=== PATIENT | male | born 1965 | race African-American/Black ===

== ENCOUNTER 2017-02-17 17:01 | Emergency (ER) | payer OTHER ==
[~2017-02-17] VITALS: Ht 177.8 cm; Wt 84.0 kg
[~2017-02-17 17:01] MED LIST: ANTI-ITCH28.4 GM TP; AUGMENTIN875 MG PO; BENADRYL50 MG PO; FLEXERIL10 MG PO; FLONASE16 G1 BOTH NARES; MEDROL DOSEPAK4 MG PO; NAPROSYN500 MG PO; PERCOCET 5/31 TABLET PO; ZOFRAN4 MG PO
[2017-02-17] MEDS ORDERED: KEFLEX500 MG PO (18:18)
[2017-02-17 18:50] VITALS: BP 131/70
== END 2017-02-17 18:51 | disposition home or self-care (01) ==
LOC: EME 17:01
DX: S50.11XA Contusion of right forearm, initial encounter (principal); W17.89XA Other fall from one level to another, initial encounter; E11.9 Type 2 diabetes mellitus without complications; F17.200 Nicotine dependence, unspecified, uncomplicated
CPT/HCPCS: 73080; 73090; 99281; 99283

== ENCOUNTER 2017-04-15 19:22 | Emergency (ER) | payer OTHER ==
[~2017-04-15] VITALS: Ht 177.8 cm; Wt 82.2 kg
[~2017-04-15 19:22] MED LIST changes: +KEFLEX500 MG PO
[2017-04-15 19:53] VITALS: BP 135/82
[2017-04-15] MEDS ORDERED: MOTRIN800 MG PO (21:40)
[2017-04-15] MEDS ORDERED: FLEXERIL10 MG PO (21:40)
== END 2017-04-15 22:03 | disposition home or self-care (01) ==
LOC: EME 19:22
DX: S40.012A Contusion of left shoulder, initial encounter (principal); X58.XXXA Exposure to other specified factors, initial encounter; Y92.89 Other specified places as the place of occurrence of the external cause
CPT/HCPCS: 73030; 99281; 99283

== ENCOUNTER 2017-04-30 14:12 | Emergency (ER) | payer OTHER ==
[~2017-04-30] VITALS: Ht 177.8 cm; Wt 81.0 kg
[~2017-04-30 14:12] MED LIST changes: +MOTRIN800 MG PO
[2017-04-30 16:31] VITALS: BP 141/95
== END 2017-04-30 16:34 | disposition home or self-care (01) ==
LOC: EME 14:12
DX: S09.90XA Unspecified injury of head, initial encounter (principal); V85 Occupant of special construction vehicle injured in transport accident; Y99.0 Civilian activity done for income or pay; E11.9 Type 2 diabetes mellitus without complications; E78.5 Hyperlipidemia, unspecified; I10 Essential (primary) hypertension; I25.2 Old myocardial infarction; F17.200 Nicotine dependence, unspecified, uncomplicated; Z85.038 Personal history of other malignant neoplasm of large intestine
CPT/HCPCS: 99281; 99283

== ENCOUNTER 2017-08-15 07:39 | Emergency (ER) | payer OTHER ==
[~2017-08-15] VITALS: Ht 175.3 cm; Wt 85.0 kg
[2017-08-15 08:32] LABS: HEMATOCRIT 43.9 % (38.0-50.0); HEMOGLOBIN 14.8 G/DL (12.5-16.6); MCH 28.4 PG (29.0-34.0); MCHC 33.7 G/DL (30.0-36.0); MCV 84.3 FL (86-99); PLATELET COUNT 271 K/uL (156-360); RBC DIS.WIDTH-CV 15.6 % (11.8-14.6); RBC DIS.WIDTH-SD 47.3 % (39-53); RED BLOOD COUNT 5.21 M/uL (4.00-5.50); WHITE BLOOD COUNT 12.5 K/uL (4.1-10.2)
[2017-08-15 08:41] LABS: ALBUMIN 4.2 g/dL (3.2-4.8)
[2017-08-15 08:42] LABS: CHLORIDE 107 mEq/L (99-109); POTASSIUM 4.3 mEq/L (3.7-5.4); SODIUM 141 mEq/L (136-147)
[2017-08-15 08:44] LABS: GLUCOSE 89 mg/dL (70-99); TOTAL PROTEIN 7.1 g/dL (6.4-8.3)
[2017-08-15 08:46] LABS: TOTAL BILIRUBIN 0.3 mg/dL (0.0-1.0)
[2017-08-15 08:47] LABS: ALKALINE PHOSPHATASE 70 IU/L (3-129)
[2017-08-15 08:48] LABS: CREATININE 1.2 mg/dL (0.6-1.3); GFR ESTIMATE (CALCULATED) > 59 mL/min/ (58.99-99999)
[2017-08-15 08:49] LABS: AST (GOT) 21 IU/L (2-34); UREA NITROGEN (BUN) 22 mg/dL (9-23)
[2017-08-15 08:50] LABS: ALT (GPT) 14 IU/L (3-49)
[2017-08-15 08:51] LABS: LIPASE 26 U/L (1.0-51.0)
[2017-08-15] MEDS ORDERED: ZOFRAN4 MG PO (08:59)
[2017-08-15 09:13] VITALS: BP 150/97
== END 2017-08-15 09:14 | disposition home or self-care (01) ==
LOC: EME 07:39
PROVIDERS: Physician Assistant
DX: R11.2 Nausea with vomiting, unspecified (principal); R10.9 Unspecified abdominal pain; Z85.038 Personal history of other malignant neoplasm of large intestine; F17.200 Nicotine dependence, unspecified, uncomplicated
CPT/HCPCS: 80053; 81003; 83690; 85027; 99281; 99283

== ENCOUNTER 2018-03-06 18:26 | Observation (INO) | payer OTHER ==
[~2018-03-06] VITALS: Ht 175.3 cm; Wt 82.2 kg
[2018-03-06 19:25] LABS: HEMATOCRIT 41.2 % (38.0-50.0); HEMOGLOBIN 13.8 G/DL (12.5-16.6); MCH 28.6 PG (29.0-34.0); MCHC 33.5 G/DL (30.0-36.0); MCV 85.3 FL (86-99); PLATELET COUNT 230 K/uL (156-360); RBC DIS.WIDTH-CV 15.3 % (11.8-14.6); RBC DIS.WIDTH-SD 47.8 % (39-53); RED BLOOD COUNT 4.83 M/uL (4.00-5.50); WHITE BLOOD COUNT 7.8 K/uL (4.1-10.2)
[2018-03-06 19:40] LABS: CHLORIDE 107 mEq/L (99-109); POTASSIUM 4.5 mEq/L (3.7-5.4); SODIUM 142 mEq/L (136-147)
[2018-03-06 19:42] LABS: GLUCOSE 89 mg/dL (70-99)
[2018-03-06 19:46] LABS: CREATININE 1.6 mg/dL (0.6-1.3); GFR ESTIMATE (CALCULATED) 59 mL/min/ (58.99-99999); TROP-I INTERPRETATION NEGATIVE; TROPONIN-I < 0.01 ng/mL (0.0-0.30)
[2018-03-06 19:47] LABS: UREA NITROGEN (BUN) 17 mg/dL (9-23)
[2018-03-06 20:37] LABS: ALBUMIN 4.4 g/dL (3.2-4.8)
[2018-03-06 20:40] LABS: TOTAL PROTEIN 7.4 g/dL (6.4-8.3)
[2018-03-06 20:42] LABS: TOTAL BILIRUBIN 0.2 mg/dL (0.0-1.0)
[2018-03-06 20:43] LABS: ALKALINE PHOSPHATASE 75 IU/L (3-129)
[2018-03-06 20:45] LABS: AST (GOT) 29 IU/L (2-34); DIRECT BILIRUBIN 0.1 mg/dL (0.0-0.3)
[2018-03-06 20:46] LABS: ALT (GPT) 24 IU/L (3-49); CREATINE KINASE 806 IU/L (1-294)
[2018-03-06] MEDS ORDERED: OMEPRAZOLE20 MG PO (21:41)
[2018-03-06] MEDS ORDERED: LINZESS145 MCG PO (21:41)
[2018-03-06] MEDS ORDERED: LIPITOR80 MG PO (21:41)
[2018-03-06 22:58] LABS: APPEARANCE CLEAR ((CLEAR)); BILIRUBIN NEGATIVE; BLOOD NEGATIVE; COLOR YELLOW ((YELLOW)); GLUCOSE (STRIP) NEGATIVE; KETONES NEGATIVE; LEUKOCYTES NEGATIVE; NITRITE NEGATIVE; PROTEIN (STRIP) NEGATIVE; UROBILINOGEN 0.2 MG/DL (0.2-1.0)
[2018-03-06 23:15] LABS: AMPHETAMINE NEGATIVE (500 ng/mL); BARBITURATES NEGATIVE (200 ng/mL); BENZODIAZEPINES NEGATIVE (150 ng/mL); BUPRENORPHINE NEGATIVE (10 ng/mL); COCAINE PRESUMPTIVE POSITIVE (150 ng/mL); METHADONE NEGATIVE (200 ng/mL); METHAMPHETAMINE NEGATIVE (500 ng/mL); OPIATES (MORPHINE) NEGATIVE (100 ng/mL); OXYCODONE NEGATIVE (100 ng/mL); PHENCYCLIDINE NEGATIVE (25 ng/mL); PROPOXYPHENE NEGATIVE (300 ng/mL); THC CANNABINOIDS NEGATIVE (50 ng/mL); TRICYCLIC ANTIDEPRESSANTS NEGATIVE (300 ng/mL)
[2018-03-07 01:03] VITALS: BP 151/82
[2018-03-07 02:31] LABS: TROP-I INTERPRETATION NEGATIVE; TROPONIN-I < 0.01 ng/mL (0.0-0.30)
[2018-03-07 03:47] VITALS: BP 136/73
[2018-03-07 08:09] VITALS: BP 131/81
[2018-03-07 08:57] LABS: CHLORIDE 111 MEQ/L (99-109); CREATINE KINASE 468 IU/L (1-294); CREATININE 1.3 MG/DL (0.6-1.3); GFR ESTIMATE (CALCULATED) > 59 mL/min/ (58.99-99999); GLUCOSE 105 mg/dL (70-99); POTASSIUM 4.3 MEQ/L (3.7-5.4); SODIUM 142 MEQ/L (136-147); UREA NITROGEN (BUN) 19 mg/dL (9-23)
[2018-03-07 09:01] LABS: TROP-I INTERPRETATION NEGATIVE; TROPONIN-I < 0.01 ng/mL (0.0-0.30)
[2018-03-07 11:52] VITALS: BP 137/77
[2018-03-07] MEDS ORDERED: CYCLOBENZAPRINE5 MG PO (14:35)
[2018-03-07] MEDS ORDERED: ASPIR-LOW81 MG PO (14:35)
[2018-03-07] MEDS ORDERED: TRAMADOL HCL50 MG PO (14:36)
[2018-03-07] MEDS ORDERED: MEDROL DOSEPAK4 MG PO (14:36)
== END 2018-03-07 18:25 | disposition home or self-care (01) ==
LOC: EME 18:26 → EDOF 03-07 00:20 → 4SOUTH 03-07 00:20
PROVIDERS: Hospitalist; Physician Assistant
DX: R07.9 Chest pain, unspecified (principal); M79.605 Pain in left leg; M54.32 Sciatica, left side; M62.82 Rhabdomyolysis; E78.5 Hyperlipidemia, unspecified; N28.9 Disorder of kidney and ureter, unspecified; F14.20 Cocaine dependence, uncomplicated; E11.9 Type 2 diabetes mellitus without complications; K21.9 Gastro-esophageal reflux disease without esophagitis; I25.2 Old myocardial infarction; F17.200 Nicotine dependence, unspecified, uncomplicated; R20.0 Anesthesia of skin; R74.8 Abnormal levels of other serum enzymes; Z90.49 Acquired absence of other specified parts of digestive tract
CPT/HCPCS: 71046; 72131; 80048; 80076; 81003; 82550; 82550 91; 82948; 84484; 84999; 85027; 93005; 93971; 99281; 99285; G0378; J1885; J2930; J7030; J7040